=== PATIENT | female | born 1990 | race Two or more races ===

== ENCOUNTER 2019-10-07 11:52 | Emergency (ER) | payer SELFPAY ==
[~2019-10-07] VITALS: Ht 149.9 cm; Wt 50.0 kg
[~2019-10-07 11:52] MED LIST: CETI10TA26 PO
--- NOTE | 2019-10-07 12:08 | NUR ---
THIS IS A 29 YO F BIB EMS FROM HOME, GOES BY "JUANITA", W/ C/O SI SINCE MAY. PT REPORTS NO PLAN AT THIS MOMENT BUT "KNOWS ITS EASY". REPORTS HX OF SA, LAST ATTEMPT BEING IN 2013 BY DRINKING BLEACH, PT REPORTS HX OF TAKING WELLBUTRIN AND CELEXA, HAS ALSO TAKEN PROZAC IN THE PAST WHICH INCREASED HER SI. PT HAS BEEN OFF MEDS SINCE 2014. PT BELONGINGS REMOVED AND PUT IN SAFETY LOCKER, PT IN GOWN. PT AMBULATED TO THE W/ A STEADY GAIT, URINE COLLECTED. GARAGE DOORS DOWN AND SITTER OUTSIDE ROOM FOR SAFETY. STROBOROMA OPERATOR STUDENT AT BEDSIDE FOR EVAL.
[2019-10-07 12:35] LABS: BASOPHILS # (AUTO) 0.04 x10^3/uL (0-0.1); BASOPHILS % (AUTO) 1 % (0-1); EOSINOPHILS # (AUTO) 0.07 x10^3/uL (0-0.4); EOSINOPHILS % (AUTO) 1 % (1-7); LYMPHOCYTES # (AUTO) 1.44 x10^3/uL (1-3.4); LYMPHOCYTES % (AUTO) 23 % (22-44); MD NO; MEAN CORPUSCULAR HEMOGLOBIN 28.8 pg (27.0-34.8); MEAN CORPUSCULAR HGB CONC 32.7 g/dL (32.4-35.8); MEAN CORPUSCULAR VOLUME 88.2 fL (80-100); MEAN PLATELET VOLUME 7.9 fL (7.4-10.4); MONOCYTES # (AUTO) 0.58 x10^3/uL (0.2-0.8); MONOCYTES % (AUTO) 10 % (2-9); NEUTROPHILS # (AUTO) 4.05 x10^3/uL (1.8-6.8); NEUTROPHILS % (AUTO) 66 % (42-75); PLATELET COUNT 231 x10^3/uL (130-400); RED BLOOD COUNT 4.22 x10^6/uL (3.82-5.3); RED CELL DISTRIBUTION WIDTH 13.8 % (9.6-15.2)
[2019-10-07 12:50] LABS: AMPHETAMINE SCREEN, URINE Negative (Negative); BARBITURATE SCREEN, URINE Negative (Negative); BENZODIAZEPINE SCREEN, URINE Negative (Negative); CANNABINOID SCREEN, URINE Positive (Negative); METHADONE SCREEN, URINE Negative (Negative); OPIATE SCREEN, URINE Negative (Negative)
[2019-10-07 12:51] LABS: COCAINE SCREEN, URINE Negative (Negative)
--- NOTE | 2019-10-07 12:56 | NUR ---
report received from task RN [facility]. pt presents to ED seeking help as she is suicidal, pt states she has made no attempts to commit suicide, has not ingested any substances. pt is a&o, resps even and unlabored, calm and cooperative. urine sent to lab, room secure. sitter monitoring from [facility] for safety. belongings placed in secure cabinet. pt is speaking with psych zaina Ji at this time.
[2019-10-07 13:03] LABS: ALANINE AMINOTRANSFERASE 13 U/L (12-78); ALBUMIN 3.6 g/dL (3.4-5.0); CALCIUM 8.6 mg/dL (8.5-10.1); CREATININE 0.63 mg/dL (0.55-1.02)
[2019-10-07 13:08] LABS: ALKALINE PHOSPHATASE 46 U/L (45-117); BILIRUBIN,TOTAL 0.6 mg/dL (0.2-1.0); TOTAL PROTEIN 7.2 g/dL (6.4-8.2)
[2019-10-07 13:16] LABS: ANION GAP 7 mmol/L (5-15)
[2019-10-07 13:17] LABS: CHLORIDE 112 mmol/L (98-107)
[2019-10-07] MEDS ORDERED: albuterol INH (13:17)
--- NOTE | 2019-10-07 13:18 | NUR ---
report given to HAROON Reeder who is assuming care.
[2019-10-07] MEDS ORDERED: TRAZODONE 50MG TABLET PO PRN (14:00)
[2019-10-07] MEDS ORDERED: HYDROXYZINE PAMOATE 50MG CAP PO PRN (14:00)
--- NOTE | 2019-10-07 14:17 | NUR ---
PT MOVED TO RM 1 AND REPORT TO JESU PATIÑO
[2019-10-07] MEDS ORDERED: SERTRALINE 50MG TABLET PO ONE (15:00)
[2019-10-07] MEDS ORDERED: SERTRALINE 50MG TABLET ONE (15:19)
--- NOTE | 2019-10-07 15:27 | NUR ---
PT MEDICATED WITH ZOLOFT PER ORDERS. RESTING IN HOSPITAL BED. CALM, COOPERATIVE. DENIES ANY NEEDS AT THIS TIME. SITTER OUTSIDE ROOM.
--- NOTE | 2019-10-07 18:36 | NUR ---
PT HAS BEEN RESTING IN [facility]. NOW EATING DINNER, NO S/S OF DISTRESS.
--- NOTE | 2019-10-07 18:48 | NUR ---
PACKET FAXED TO [facility]
--- NOTE | 2019-10-07 19:09 | NUR ---
UPDATED PT ON POC (LIKELY TRANSFER TO [facility]), SHE VERBALIZES UNDERSTANDING. PT TEARFUL AT TIMES, STATES SHE DOESN'T FEEL LIKE EATING DINNER. PT'S FRIEND/ROOMMATE MEKHI VISITING AT NOW. Addendum: 10/07/19 at 1927 by URSULAON UPDATED PT ON POC (LIKELY TRANSFER TO [facility]), THEY VERBALIZE UNDERSTANDING. PT TEARFUL AT TIMES, STATES THEY DON'T FEEL LIKE EATING DINNER. PT'S FRIEND/ROOMMATE MEKHI VISITING AT NOW.
--- NOTE | 2019-10-07 19:25 | NUR ---
PT REPORTED TO HER FRIEND THAT THEY'VE "BEEN NAUSEOUS FOR A FEW HOURS". MIGEL NOTIFIED, NEW ORDER SOY'MARVIN. Addendum: 10/07/19 at 1928 by URSULAON PT REPORTED TO THEIR FRIEND THAT THEY'VE "BEEN NAUSEOUS FOR A FEW HOURS". ERP NOTIFIED, NEW ORDER MACIEJ.
[2019-10-07] MEDS ORDERED: ONDANSETRON ODT 4 MG PO PRN (19:30)
[2019-10-07] MEDS ORDERED: ONDANSETRON ODT 4 MG ONE (19:39)
--- NOTE | 2019-10-07 19:43 | NUR ---
PT MEDICATED WITH ZOFRAN ODT. DECLINES ANY FOOD OR DRINK AT THIS TIME. ROOMMATE REMAINS AT BS.
--- NOTE | 2019-10-07 19:56 | NUR ---
REPORTED TO FATUMA PATIÑO.
--- NOTE | 2019-10-07 20:28 | NUR ---
PT SITTING UP IN BED TALKING WITH ROOMMATE, WHO IS AT THE BEDSIDE. PT CALM, NAD NOTED AT THIS TIME. SITTER OUTSIDE OF ROOM FOR DIRECT OBSERVATION AND Q15 MIN SAFETY CHECKS.
--- NOTE | 2019-10-07 21:15 | NUR ---
PT ASLEEP IN BED, NAD NOTED AT THIS TIME. RESPIRATIONS EVEN AND UNLABORED ON RA. SITTER OUTSIDE OF ROOM FOR DIRECT OBSERVATION AND Q15 MIN SAFETY CHECKS.
--- NOTE | 2019-10-07 22:10 | NUR ---
PT ASLEEP IN BED. NAD NOTED AT THIS TIME. PT MOVES INDEPENDENTLY FOR POSITION OF COMFORT. LIGHTS DIMMED. SITTER OUTSIDE OF ROOM FOR DIRECT OBSERVATION AND Q15 MIN SAFETY CHECKS.
--- NOTE | 2019-10-07 23:11 | NUR ---
REPORT TO HAROON SALDANA.
--- NOTE | 2019-10-07 23:15 | NUR ---
assume care of pt. report from Jessica PATIÑO. pt here on Legal Hold for SI wihtout plan. belongings have been secured previously. pt is currently sleeping on hospital bed in position of comfort. no apparent distress. room secured. sitter present for safety. will continue to monitor
--- NOTE | 2019-10-08 00:58 | NUR ---
pt given PO water per request. calm and cooperative. declines meal at this time anita secure. sitter present for safety
--- NOTE | 2019-10-08 00:59 | NUR ---
report to Kait PATIÑO for lunch
--- NOTE | 2019-10-08 01:55 | NUR ---
pt sleeping on hospital bed in position of comfort. no apparent distress. room secure. sitter present for safety
--- NOTE | 2019-10-08 02:57 | NUR ---
no changes. pt coninues sleeping in position of comfort room secure. sitter present for safety
--- NOTE | 2019-10-08 04:00 | NUR ---
no changes. pt sleeping in position of comfort. no apparent distress room secure. sitter present for safety
--- NOTE | 2019-10-08 05:05 | NUR ---
pt sleeping in position of comfort. no apparent distress room secure. sitter present for safey
--- NOTE | 2019-10-08 06:00 | NUR ---
no changes. pt continues sleeping in position of comfort. no apparent distress. room secure. sitter present for safety
--- NOTE | 2019-10-08 06:59 | NUR ---
no changes. jenny yao. report to Arlin PATIÑO
--- NOTE | 2019-10-08 06:59 | NUR ---
REPORT RECEIVED FROM SHANA PATIÑO. PT IS SLEEPING ON HOSPITAL BED, RESP EVEN AND UNLABORED, FRANCISCO JAVIER.
--- NOTE | 2019-10-08 07:02 | NUR ---
BREAKFAST TRAY ORDERED.
--- NOTE | 2019-10-08 07:53 | NUR ---
PT PLEASANT AND COOPERATIVE W/ VS. REPORTS "NO ACTIVE SI, JUST PASSIVE THOUGHTS". POC EXPLAINED TO PT. PSYCH MEDICAL FRONT DESK SPECIALIST TO EVALUATE BETWEEN [id number], PT WILL BE TRANSFERED TO HOSPITAL BED, PT OFFERED SHOWER, AGREED TO SHOWER AFTER LUNCH.
[2019-10-08 07:55] VITALS: BP 95/63
--- NOTE | 2019-10-08 08:16 | NUR ---
BREAKFAST TRAY DELIVERED.
[2019-10-08] MEDS ORDERED: SERTRALINE 50MG TABLET ONE (08:43)
--- NOTE | 2019-10-08 08:53 | NUR ---
BREAK RN: PT MED NOTED.
[2019-10-08] MEDS ORDERED: SERTRALINE 50MG TABLET PO SCH (09:00)
--- NOTE | 2019-10-08 09:22 | NUR ---
PT RESTING ON HOSPITAL BED W/ SITTER OUTSIDE ROOM, GARAGE DOORS DOWN FOR SAFETY. FRANCISCO JAVIER.
--- NOTE | 2019-10-08 10:15 | NUR ---
PT RESTING ON HOSPITAL BED W/ SITTER OUTSIDE ROOM, GARAGE DOORS DOWN FOR SAFETY. FRANCISCO JAVIER.
--- NOTE | 2019-10-08 11:04 | NUR ---
PT RESTING ON HOSPITAL BED W/ SITTER OUTSIDE ROOM, GARAGE DOORS DOWN FOR SAFETY. FRANCISCO JAVIER.
--- NOTE | 2019-10-08 11:12 | NUR ---
REPORT GIVEN TO GEORGE AT [facility]. REPORTS THEY CAN ACCEPT PT AT 1330.
[2019-10-08] MEDS ORDERED: ONDANSETRON ODT 4 MG ONE (11:21)
--- NOTE | 2019-10-08 11:23 | NUR ---
PT HAS C/O NAUSEA. ENEDINA GARRISON NOTIFIED AND ORDERED ZOFRAN. PT MEDICATED PER EMAR.
[2019-10-08] MEDS ORDERED: ONDANSETRON ODT 4 MG PO ONE (11:30)
--- NOTE | 2019-10-08 12:22 | NUR ---
LUNCH TRAY DELIVERED.
--- NOTE | 2019-10-08 12:30 | NUR ---
KRISTEN BRADSHAW AT BEDSIDE.
--- NOTE | 2019-10-08 12:47 | NUR ---
PT RESTING ON HOSPITAL BED W/ SITTER OUTSIDE ROOM, GARAGE DOORS DOWN FOR SAFETY. FRANCISCO JAVIER.
--- NOTE | 2019-10-08 13:57 | NUR ---
PT RESTING ON HOSPITAL BED W/ SITTER OUTSIDE ROOM, GARAGE DOORS DOWN FOR SAFETY. NADN. FAMILY AT BEDSIDE.
--- NOTE | 2019-10-08 14:09 | NUR ---
TASK RN: PT RESTING IN BED. SITTER REMAINS AT BEDSIDE. ROOM REMAINS SECURE.
== END 2019-10-08 15:27 ==
LOC: ED 13:29
DX: R45.851 Suicidal ideations (principal); F32.9 Major depressive disorder, single episode, unspecified
CPT/HCPCS: 36415; 80053; 80307; 84703; 85025; 99285; Q0162